=== PATIENT | female | born 1950 | race Hispanic/Latino ===

== ENCOUNTER 2017-07-13 10:08 | Inpatient (IN) | payer MEDICARE, BC ==
[~2017-07-13 10:08] MED LIST: Atropine Sulfate 1 mg/10 ml Syringe ONE; EPINEPHrine 1 MG/10 ML Abboject SYRINGE ONE
[2017-07-13 10:25] LABS: #Eosinphils 0.1 thou/uL (0.0-0.7); #Lymphocytes 0.6 thou/uL (1.20-3.40); #Monocytes 0.4 thou/uL (0.11-0.59); #Neutrophils 5.6 thou/uL (1.40-6.50); %Lymphocytes 8.5 % (21.0-51.0); %Monocytes 5.5 % (0.0-10.0); Hemoglobin 9.9 g/dL (12.0-16.0); Mean Corpuscular HGB CONC 32.5 g/dL (32.0-36.0); Mean Corpuscular Hemoglobin 29.6 pg (27.0-31.0); Mean Platelet Volume 8.4 fL (7.4-10.4); Platelet Count 224 thou/uL (130-400); Red Blood Cell (RBC) Count 3.34 mill/uL (4.20-5.40); White Blood Cell (WBC) Count 6.6 thou/uL (4.8-10.8)
[2017-07-13 10:37] LABS: INR-International Normal Ratio 1.4; Prothrombin Time 17.1 SEC (12.0-14.7)
[2017-07-13 10:38] LABS: PTT 48.7 SEC (22.9-36.1)
[2017-07-13 10:41] LABS: Digoxin Less than 0.15 ng/mL (0.8-2.0)
[2017-07-13 10:42] LABS: ALT (SGPT) 12 U/L (8-55); AST (SGOT) 19 U/L (5-34); Albumin 2.6 g/dL (3.4-4.8); Alkaline Phosphatase 106 U/L (40-150); Anion Gap 13 mmol/L (10-20); BUN (Urea Nitrogen) 76 mg/dL (9.8-20.1); Bilirubin, Total 0.6 mg/dL (0.2-1.2); CK (CPK) 64 U/L (29-168); Calc. Creatinine Clearance 0 mL/min (70-130); Calcium 8.1 mg/dL (7.8-10.44); Carbon Dioxide 20 mmol/L (23-31); Chloride 99 mmol/L (98-107); Estimated GFR-MDRD 14; Globulin 3.6 g/dL (2.4-3.5); Lipase 50 U/L (8-78); Potassium 3.4 mmol/L (3.5-5.1); Protein, Total 6.2 g/dL (6.0-8.3); Sodium 129 mmol/L (136-145)
--- NOTE | 2017-07-13 10:42 | RAD ---
CHEST ONE VIEW: History: Emergency exam. Bradycardia. Comparison: 08-13-16 FINDINGS: Patient is rotated to the right. Defibrillator pad is noted over the right chest. Heart size is moder ately enlarged. There appears to be prominence of the left basilar and pulmonary trunk. No definite aortic dissection . No pneumothorax. IMPRESSION: Stable appearance to the chest. Cardiomegaly with mild pulmonary venous congestion. Defibrillator pad is projecting over the right chest. POS: [facility]
[2017-07-13 10:45] LABS: Glucose 31 mg/dL (80-115)
[2017-07-13 10:46] LABS: CKMB 2.6 ng/mL (0-6.6); Troponin I 0.077 ng/mL (< 0.028)
[2017-07-13] MEDS ORDERED: Dextrose 50% Abboject 50 ML SYRINGE ONE (10:46)
[2017-07-13 10:59] LABS: Actual Bicarbonate (HCO3a) 20.8 mEq/L (22-26); Base Excess (BEa) -3.5 mEq/L (0 (+/-) 2.5); CO2 Tension 34.5 mmHg (35.0-45.0); Carboxyhemoglobin (COHb) 1.4 gm% (0.0-3.0); Hematocrit-ABG 33.5 % (36.0-47.0); O2 Tension (PaO2) 63.3 mmHg (80.0-100.0); Potassium - ABG Lab 3.2 mmol/L (3.70-5.30)
[2017-07-13 11:00] LABS: ALV-art Gradient 150.255 (0-20); Analyzer IN Cardio ER; Calcium, Ionized 1.1 mmol/L (1.12-1.30); Puncture Site L.B.
[2017-07-13] MEDS ORDERED: Vancomycin HCl 1.25 GM in Sodium Chloride 0.9% 250 ML 250 ML IVPB SCH (11:00)
[2017-07-13 11:04] LABS: Bilirubin Negative (Negative); Blood, Urine Negative (Negative); Glucose, Urine (Dipstick) Negative (Negative); Leukocyte Small (Negative); Nitrite Negative (Negative); Protein, Urine (Dipstick) Negative (Neg-Trace); Urobilinogen 0.2 mg/dL (0.2-1.0); pH, Urine 5.5 (5.0-9.0)
[2017-07-13 11:06] LABS: Clarity Hazy (Clear)
[2017-07-13 11:14] LABS: Bacteria/HPF 4+ HPF (None Seen); Hyaline Casts/LPF NONE SEEN LPF (0-3 Hyaline); RBC/HPF 0-3 HPF (0-3); Squamous Epithelial 0-3 HPF (0-3)
[2017-07-13] MEDS ORDERED: Piperacillin/Tazobactam 4.5 GM in Sodium Chloride 0.9% 100 ML IVPB SCH (11:15)
--- NOTE | 2017-07-13 11:16 | CT ---
NONCONTRAST CT HEAD: Date: 07-13-17 History: Altered mental status. Comparison: 11-13-14 FINDINGS: Patient was recently administered intravenous contrast which limits evaluation for subarachnoid hemor rhage. However, no intraparenchymal hemorrhage is visualized. Encephalomalacia and distribution of th e left posterior cerebral artery is again present and stable from prior exam likely related to remote area of infarction. There is a low density area again seen within the right supraventricular frontal lobe centrum semiovale likely related to dilatation of the occipital horn and atrium of the left lat eral ventricle as well as portions of the temporal horn left lateral ventricle due to an area of ence phalomalacia. There is minimal asymmetric signal volume loss on the left compared to the right which also a stable finding. No acute cortical infarction is present. Remote lacunar infarction posterior left internal capsule is again seen. No other interval change. IMPRESSION: 1. Limited exam for evaluation of subarachnoid hemorrhage, but no obvious intracranial hemorrhage is appreciated on this exam. 2. Stable area of encephalomalacia left temporo-occipital lobe. 3. Remote lacunar infarction in the posterior left internal capsule as well as small remote infractio n in the left cerebellar hemisphere. 4. No acute intracranial abnormalities demonstrated. POS: [facility]
--- NOTE | 2017-07-13 11:40 | CT ---
CTA OF THE CHEST AND ABDOMEN UTILIZING IV CONTRAST AND AORTIC DISSECTION PROTOCOL WITH 3D REFORMATTED IMAGING: COMPARISON: CT of the abdomen dated 03/20/12. FINDINGS: No acute aortic stenosis, occlusion, or aneurysmal formation is evident. There is severe vascular ca lcification involving the thoracic aorta and coronary arteries. There is postsurgical change of a pr ior CABG. The great vessel origins are patent. The common carotid and subclavian arteries appear pa tent. There are small bilateral pleural effusions, right greater than left. There are areas of scat tered subsegmental volume loss within both lungs. There is moderate cardiomegaly. There is diffuse prominent ascites. There is moderate to prominent anasarca. There is a fluid-conta ining anterior abdominal wall hernia seen within the upper midline abdominal wall image 115 of series 2. There is an additional fluid-containing paraumbilical hernia. There is high-grade stenosis involving the origins of the celiac, SMA, and both renal arteries. Ther e is also high-grade stenosis involving the origin of VERONICA. Common iliac, external iliac, and interna l iliac arteries appear patent. No definite acute osseous abnormality is evident. IMPRESSION: 1. No acute aortic stenosis, occlusion, or aneurysmal formation. 2. High-grade stenosis involving the celiac, superior mesenteric artery, renal, and inferior mesente trip artery origins. 3. Cardiomegaly with small bilateral pleural effusions may reflect sequelae of volume overload or co ngestive heart failure. There is prominent ascites and anasarca. 4. Fluid containing anterior abdominal wall and periumbilical abdominal wall hernia. 5. Scattered subsegmental volume loss within both lungs. POS: [facility]
[2017-07-13] MEDS ORDERED: Furosemide 100 MG/10 ML VIAL ONE (11:48)
[2017-07-13] MEDS ORDERED: DOBUTAMINE IN DEXTROSE 5 % 250 MG in Premix Bag 1 BAG IV SCH (12:45)
[2017-07-13] MEDS ORDERED: ISOVUE-370 76%-LOCM 1 ML ONE (12:46)
[2017-07-13] MEDS ORDERED: Calcium Carbonate 500 MG ChewTAB PO PRN (13:04)
[2017-07-13] MEDS ORDERED: Bisacodyl 10 MG SUPP PR PRN (13:04)
[2017-07-13] MEDS ORDERED: Ondansetron PF 4 MG/2 ML Vial IVP PRN (13:04)
[2017-07-13] MEDS ORDERED: Guaifenesin DM 100-10/5 ML UDCUP PO PRN (13:04)
[2017-07-13] MEDS ORDERED: Acetaminophen 325 MG TAB PO PRN (13:04)
[2017-07-13] MEDS ORDERED: Bisacodyl 5 MG TAB PO PRN (13:04)
[2017-07-13] MEDS ORDERED: Furosemide 100 MG in Sodium Chloride 0.9% 100 ML IVPB SCH (13:15)
[2017-07-13] MEDS: cefTRIAXone\\ROCEPHIN 2 GM in Sodium Chloride 0.9% 100 ML IVPB SCH (15:36)
--- NOTE | 2017-07-13 15:37 | HP ---
REASON FOR ADMISSION: Bradycardia, acute on chronic congestive heart failure exacerbation, acute kidney injury on top of chronic kidney disease, multiple organ failure, hyponatremia, metabolic acidosis likely due to renal disease, hypoalbuminemia with protein malnutrition. HISTORY OF PRESENT ILLNESS: Please note the majority of this history is obtained by talking to patient's , ER physician, prior records as patient is not fully oriented to give a comprehensive history. She is currently moaning. She apparently became very lethargic this morning. She was not responding well to her and EMS was summoned for the same and was brought here. When EMS arrived, the patient had heart rates in the 50s and was given a dose of atropine and she was placed on transcutaneous pacer and brought to emergency room. The patient's mentions that she has had bradycardia in May, specifically on 06/05/2017 and was admitted to [facility] for nearly 7 days. She was evaluated by her basketball commentator, Dr. Ricardo alfaro. Her heart rate was ranging from 39-54 then. On 07/06/2017, the patient was not urinating much. In fact, she was only urinating once a day , small amount. The called Dr. Silva's office and she was asked to take Lasix 100 mg daily along with metolazone. She was putting on fluid all around her abdomen and lower extremities. The called Dr. Lee yesterday and told that she is still not making urine and Dr. Lee advised them to give her free water. Finally, when she became very lethargic this morning, the patient was brought to emergency room. On arrival, her heart rate was peaking up to 50s and 60s at present. She was placed on dobutamine drip. The patient was hypothermic on arrival with a temperature of 94.8 and is currently placed on a Janis Hugger. PAST MEDICAL AND SURGICAL HISTORY: History of chronic kidney disease stage 3-4 , CHF with diastolic dysfunction. Had echo done in 07/2016 which showed RV pressures of 56 mmHg with severe tricuspid regurgitation then. Coronary artery disease with prior cardiac catheterization, diabetes mellitus type 2, prior history of CVA with right hemiparesis, hypothyroidism, dyslipidemia, anxiety, depression, carotid endarterectomy, hysterectomy, x1. CURRENT MEDICATIONS: The patient is on aspirin 150 mg p.o. twice daily, Levemir 12 units subq daily, vitamin D3 one gram twice daily, nitroglycerin transdermal patch daily, levothyroxine 100 mcg daily, Norvasc 5 mg p.o. q.a.m., Imdur 120 mg daily, Coreg 12.5 mg twice daily, Lasix 100 mg daily, metolazone 5 mg daily, Pravachol 80 mg p.o. daily, hydralazine 50 mg 3 times daily, sertraline 50 mg daily. ALLERGIES: No known drug allergies. PERSONAL HISTORY: Does not abuse alcohol or drugs. No history of smoking. Lives with her . FAMILY HISTORY: There is history of diabetes, hypertension, and heart disease in the family. REVIEW OF SYSTEMS: Cannot be obtained as patient is not oriented at present. PHYSICAL EXAMINATION: GENERAL: The patient is a 67-year-old female who is in moderate to severe distress with moaning and is complaining of abdominal discomfort. VITAL SIGNS: Blood pressure 126/64, pulse is ranging from 50-61 beats per minute, respiratory rate 18 per minute, temperature 94.8 rectal, saturating 93% on 4 liters nasal cannula. NECK: Supple. There is mild elevation in JVD. EYES: Extraocular muscles intact. Pupils are reacting to light. ORAL CAVITY: Mucous membranes are dry. No exudates or congestion. CARDIOVASCULAR: S1, S2 heard, S3 plus. RESPIRATORY: Air entry 1+ bilateral. Distant breath sounds. There are rales plus bilaterally. ABDOMEN: Soft. There was subcutaneous edema with massive anasarca around the abdomen and upper thigh area. Bowel sounds are heard. No rigidity or guarding. EXTREMITIES: There is 2+ peripheral edema, no calf tenderness. VASCULAR: Peripheral pulses 1+ bilateral. No ischemic ulcerations or gangrene. CENTRAL NERVOUS SYSTEM: The patient has chronic right hemiparesis with no acute focal finding seen. PSYCHIATRIC: Cannot be assessed as patient is not cognitively intact at present. LABORATORY AND X-RAY FINDINGS: White count 6.6, H&H 10 and 30, platelet count 224, MCV is 91 with 85% neutrophils. PT/INR 17 and 1.4, PTT 48. Blood gas done shows a pH of 7.40, pCO2 34, pO2 63, sodium 129, potassium 3.4. Serum bicarbonate 20, BUN 76, creatinine 3.34. Serum glucose was 31. Liver enzymes were within normal limits. CK-MB 2.6, troponin I 0.07. BNP is 3648, albumin is 2.6. CT brain done shows no acute infarct or bleed. There was old left temporal occipital encephalomalacia from prior stroke. There is also remote lacunar infarct in the posterior left internal capsule as well as small remote infarct in the left cerebellar hemisphere. CT dissection protocol done showed no aortic stenosis, occlusion, or aneurysm formation. There was high grade stenosis involving celiac, superior mesenteric artery, inferior mesenteric artery, and renal artery origins. There was cardiomegaly and small bilateral pleural effusions, prominent ascites and anasarca, fluid containing anterior abdominal wall and periumbilical abdominal wall hernias. Chest x-ray done shows cardiomegaly with pulmonary vascular congestion. EKG showed sinus bradycardia at 54 beats per minute. There are also signs of second degree type 2 AV block. CLINICAL IMPRESSION AND PLAN: The patient will be admitted to ICU in view of symptomatic bradycardia at present. She has been placed on dobutamine for massive anasarca, which is multifactorial including acute congestive heart failure exacerbation with diastolic dysfunction, acute kidney injury on top of chronic kidney disease stage 4 and hypoalbuminemia with protein malnutrition. She was given 60 mg of IV Lasix in the ER with hardly any urine output. She had a total of 120 mL of urine in the last 2 hours after Lasix. The patient was initially placed on epinephrine IV piggyback, which has been switched over to dobutamine and we will continue her at 5 mcg/kg/minute. She will also be on Lasix 5 mg an hour IV drip. We will place her on Levaquin 250 mg daily for a likely urinary tract infection. The patient has multiple organ failures and has massive anasarca with acute kidney injury. Her overall prognosis is poor and I have explained this to the patient's and son at bedside. She has out of hospital DNR and the wants her to be DNR as this is what she wanted. The also mentions that he does not want her going on hemodialysis as the patient had expressed the same to him before. The is also clearly aware with diuresis that patient might end up with end-stage renal disease. She is almost anuric at present and last-ditch effort will be done to help her anasarca which might stress the kidneys. If patient were to end up with end-stage renal disease with complete anuria, would want his to going into hospice with likely placement. We will hold off all AV kylah blockers for now including Coreg. She will be on aspirin, Colace, levothyroxine, Pravachol for now. Echo with 2D Doppler for LV function will be obtained. Cardiology consultation with Dr. Crowley, who is on for Cardiology will be obtained. Once the patient is more stable with respect to her bradycardia, the patient will be transferred to telemetry. She will be on clear liquid diet if she can tolerate after a few hours of perking up. If not, she will be kept n.p.o. The patient does very minimal with respect to ADL at home. She barely stands up and pivots for her to place the wheelchair to move around. She also has baseline cognitive defects in addition to right hemiparesis from her prior stroke and has short term memory loss as well. This information is based on my talking to patient's at bedside. We will continue to closely monitor her in ICU for bradycardia as of now. SHARIF
[2017-07-13] MEDS ORDERED: Dextrose 5% in Water 1,000 ML IV PRN (18:08)
[2017-07-13] MEDS ORDERED: Insulin Regular 300 UNITS/3 ML VIAL SC PRN (18:08)
[2017-07-13] MEDS ORDERED: Dextrose 50% Abboject 50 ML SYRINGE SLOW IVP PRN (18:08)
[2017-07-13] MEDS: Albumin 25% 25 GM/100 ML BOT IVPB SCH ×2 (18:43→22:00)
--- NOTE | 2017-07-13 20:30 | CON ---
DATE OF CONSULTATION: 07/13/2017 HISTORY OF PRESENT ILLNESS: The patient is an unfortunate 67-year-old woman with a long history of ischemic cardiomyopathy, who presented with extreme weakness and dyspnea. The patient has a long history of ischemic cardiomyopathy. She has been followed by Dr. Silva. She has been admitted several times with congestive heart failure. She was in her usual state of health. When she started making less urine and took extra doses of Lasix. The patient became confused and weak, and came to the emergency room for further evaluation. PAST MEDICAL HISTORY: 1. Coronary artery disease. 2. Cardiomyopathy. 3. Diabetes mellitus. 4. Hypertension. 5. Depression. PAST SURGICAL HISTORY: Hysterectomy, carotid endarterectomy. MEDICATIONS: See nursing list. SOCIAL HISTORY: Nonsmoker. PHYSICAL EXAMINATION: GENERAL: This is an ill-appearing woman on dobutamine with her heart rate of 65. NECK: Full. LUNGS: Crackles in both bases. HEART: Regular rate and rhythm, normal S1, S2, 2/6 systolic murmur. ABDOMEN: Distended. EXTREMITIES: Showed severe bilateral edema. LABORATORY DATA: Sodium 129, potassium 3.4, chloride 99, bicarbonate 20, BUN 76 , creatinine 3.34. Her white blood cell count is 6.6, hemoglobin 9.9, hematocrit 30.5, platelets 224. INR was 1.4. Her initial EKG revealed marked sinus bradycardia with premature ventricular contractions. Telemetry monitoring reveals normal sinus rhythm, rate of approximately 16. IMPRESSION: 1. Symptomatic bradycardia. 2. History of coronary artery bypass surgery. 3. Severe ischemic cardiomyopathy. 4. Cerebrovascular accident. 5. Diabetes mellitus. PLAN: This patient developed symptomatic bradycardia. From a cardiac standpoint, it may be advisable that this patient have placement of electronic defibrillator. The patient will continue on dobutamine. We will follow this patient with you through her hospitalization. Critical care note, 30 minutes. SHARIF
--- NOTE | 2017-07-13 20:34 | CON ---
DATE OF CONSULTATION: 07/13/2017 HISTORY OF PRESENT ILLNESS: Ms. Tipton is a 67-year-old female with known history of chronic renal failure secondary to the patient's diabetic nephropathy and admitted for bradycardia. Of interest, this patient was also admitted at [facility] back on May for bradycardia. She was also noted to be having generalized edema. We are now being consulted for her worsening renal dysfunction as well as generalized edema. In the interim, the patient's diuretics has been increased. Cardiology has had added metolazone earlier this week. However, urine output still was noted to be decreased. REVIEW OF SYSTEMS: Positive for generalized edema. No syncopal episode, no chest pain. Patient has some mild shortness of breath. No nausea, no vomiting. Decreased appetite, decreased energy level. No fever or chills. No gross hematuria. No dysuria, no urinary frequency. HOME MEDICATIONS: Furosemide 80 mg once a day, sertraline 50 mg at bedtime, amlodipine 10 mg half tablet once a day, Imdur 60 mg 2 tabs in the morning, pravastatin 80 mg tab at bedtime, carvedilol 12.5 mg 1/2 tablet twice a day, Levemir 12 units subcu at bedtime, hydralazine 25 mg tab 2 tabs t.i.d., metolazone 5 mg tab once a day. PAST MEDICAL HISTORY: Includes the following, 1. Coronary artery disease. 2. Status post CHF. 3. Chronic renal failure from diabetic nephropathy. 4. Status post cerebrovascular accident 5. Type 2 diabetes mellitus. 6. Hyperlipidemia. 7. Hypothyroidism. 8. Dyslipidemia. 9. Status post DC. 10. Depression. PAST SURGICAL HISTORY: 1. Status post hysterectomy. 2. Status post cardiac catheterization. 3. Status post carotid endarterectomy. SOCIAL HISTORY: Retired daycare worker. , lives in [place]. Two children. Education: 12th grade. No history of smoking, no alcohol, no IV drug abuse. Status post blood transfusion. ALLERGIES: None. TRAUMA: None. IMMUNIZATIONS: Up to date. HOSPITALIZATIONS: Please see past medical history. FAMILY HISTORY: Positive family history of ESRD. PHYSICAL EXAMINATION: VITAL SIGNS: Blood pressure is 158/79, heart rate is 68, respiratory rate is 20 , pulse ox 97%. GENERAL: Awake, confused, agitated. Not in overt distress. SKIN: Adequate turgor. HEENT: She has pinkish conjunctivae, anicteric sclerae. NECK: No neck mass, no carotid bruits, no JVD. CHEST: No deformities. LUNGS: Decreased breath sounds. HEART: Normal sinus rhythm. No murmur, no gallops or rubs. ABDOMEN: Globular, soft, nontender. No masses. EXTREMITIES: Trace edema. LABORATORY DATA AND X-RAY FINDINGS: Of 07/13/2017, white count 6.6, hemoglobin 9.9, hematocrit 30.5, sodium 129, potassium 3.4, chloride 99, carbon dioxide 20 , BUN 76, creatinine 3.34, glucose 31, calcium 8.1, uric acid is 13.2, AST 19, ALT 12. Troponin I 0.077. BNP is 3640. Chest x-ray, increased lung markings. ASSESSMENT AND PLAN: 1. Generalized edema/anasarca. I agree with empiric Lasix drip with this patient. To enhance the efficacy of the Lasix, I have decided to add salt poor albumin 25 grams IV q.6 hours for the next 3 days. Hopefully, the albumin can maintain intravascular volume to help ameliorate the renal dysfunction. There is no indication for any dialytic intervention at the present time with this patient. 2. Acute kidney injury on top of her chronic renal failure - most likely a superimposed hemodynamically mediated renal dysfunction, salt-poor albumin has been started. I agree with current management. Case discussed at length with the patient's family - father and son and with Dr. Molina. SHARIF
[2017-07-13] MEDS ORDERED: Pravastatin Sodium 20 MG TAB PO SCH (21:00)
[2017-07-13] MEDS: Famotidine 20 MG TAB PO SCH (22:16)
[2017-07-13] MEDS: hydrALAZINE 25 MG TAB PO SCH (22:16)
[2017-07-13] MEDS: Isosorbide Dinitrate 5 MG TAB PO SCH (22:16)
[2017-07-13] MEDS: Docusate 100 MG CAP PO SCH (22:17)
--- NOTE | 2017-07-14 02:02 | CON ---
DATE OF CONSULTATION: 07/13/2017 HISTORY OF PRESENT ILLNESS: Ms. Tipton is a 67-year-old female with cardiomyopathy. I met with her and her son. She has had a slow recent decline and has recently been oliguric. Her contract design agent suggested increase Lasix which did not help. Her direct entry midwife suggested increasing her liquid intake. She developed an altered mental status and presented to the emergency room. She subsequently has been started on dobutamine. She had a temperature of 94 in the emergency room, was placed on a warmer transferred to the ICU. Prior to transfer to the ICU, she had an aortic CT of her abdomen with contrast. PAST MEDICAL HISTORY: 1. Remarkable for chronic kidney disease. 2. End-stage cardiomyopathy with diastolic dysfunction. 3. History of coronary artery disease. 4. History of diabetes. 5. History of cerebrovascular accident. 6. History of hypothyroidism. 7. History of lipid disorder. 8. History of carotid endarterectomy. 9. History of anxiety and depression. 10. History of . 11. Status post hysterectomy. MEDICATIONS: Prior to admission, she was on aspirin, insulin, Vitamin D3, nitroglycerin, Synthroid, Norvasc, Imdur, Coreg, Lasix, metolazone, Pravachol, hydralazine, and Zoloft. SOCIAL HISTORY: She is a non-smoker, nondrinker. She does not use drugs. ALLERGIES: No drug allergies. FAMILY HISTORY: Positive for hypertension, heart disease, and diabetes. REVIEW OF SYSTEMS: Not obtainable from her since she is semi-obtunded. Her family denies 12-point review of systems other than progressive weight gain, abdominal swelling and progressive shortness of breath with a declining mental status. PHYSICAL EXAMINATION: VITAL SIGNS: Blood pressure 159/81, heart rate is in the 70s, respiratory rates in the teens, oximetry is 94. GENERAL: She will barely open her eyes. HEENT: Her extraocular movements appear intact. NECK: Supple. LUNGS: Remarkable for coarse equal breath sounds. HEART: Regular rhythm. Distant S1 and S2. ABDOMEN: Soft and distended. Her abdomen is nontender. EXTREMITIES: Very edematous. LABORATORY DATA AND X-RAY FINDINGS: Chest radiograph shows pulmonary vascular prominence and cardiomegaly. CT of her abdomen with contrast shows no aortic dissection, mesenteric vascular disease, sternotomy changes, vascular calcification of thoracic aorta and coronary arteries, bibasilar atelectasis, massive ascites, and ventral hernia. White count 6.6, hemoglobin 9.9, platelets 224. Sodium 129, potassium 3.4, chloride 99, bicarbonate 20, BUN 76, creatinine 3.34 , glucose was 31 at 10:00 this morning. BNP was 3648. IMPRESSION: 1. End-stage cardiomyopathy with anasarca. 2. DO NOT RESUSCITATION status per her son and her . The dobutamine is unlikely to help ad terminal makeup operator. It's likely, in this diabetic with severe renal dysfunction,she will develop anuric renal failure after her contrast dosing. Really few therapeutic options exist other than comfort. This has been explained to the family. CRITICAL CARE TIME: Thirty minutes. MTDD
[2017-07-14] MEDS: Albumin 25% 25 GM/100 ML BOT IVPB SCH ×3 (04:11→16:52)
[2017-07-14 04:50] LABS: #Lymphocytes 0.6 thou/uL (1.20-3.40); #Monocytes 0.4 thou/uL (0.11-0.59); #Neutrophils 6.8 thou/uL (1.40-6.50); %Basophils 0.4 % (0.0-1.0); %Eosinophils 0.5 % (0.0-10.0); %Lymphocytes 7.1 % (21.0-51.0); %Monocytes 4.6 % (0.0-10.0); %Neutrophils 87.3 % (42.0-75.0); Hemoglobin 10.3 g/dL (12.0-16.0); Mean Corpuscular HGB CONC 31.6 g/dL (32.0-36.0); Mean Corpuscular Hemoglobin 29.3 pg (27.0-31.0); Mean Corpuscular Volume 92.7 fl (81.0-99.0); Mean Platelet Volume 8.6 fL (7.4-10.4); Platelet Count 239 thou/uL (130-400); Red Blood Cell (RBC) Count 3.52 mill/uL (4.20-5.40); White Blood Cell (WBC) Count 7.8 thou/uL (4.8-10.8)
[2017-07-14 04:59] LABS: Albumin 3.5 g/dL (3.4-4.8); Anion Gap 17 mmol/L (10-20); BUN (Urea Nitrogen) 68 mg/dL (9.8-20.1); BUN/Creatinine Ratio 21.45; Calc. Creatinine Clearance 0 mL/min (70-130); Calcium 8.5 mg/dL (7.8-10.44); Carbon Dioxide 17 mmol/L (23-31); Chloride 100 mmol/L (98-107); Estimated GFR-MDRD 15; Glucose 82 mg/dL (80-115); Phosphorus 4.8 mg/dL (2.3-4.7); Potassium 3.4 mmol/L (3.5-5.1); Sodium 131 mmol/L (136-145)
[2017-07-14] MEDS: Levothyroxine Sodium 75 MCG TAB PO SCH ×2 (05:53→07:25)
[2017-07-14] MEDS ORDERED: Enoxaparin Sodium 30 MG/0.3 ML SYRINGE SC SCH (09:00)
--- NOTE | 2017-07-14 09:29 | PRG ---
DATE OF SERVICE: 07/14/2017 SUBJECTIVE: Ms. Tipton is a 67-year-old white female who was admitted due to generalized e david and generalized weakness. She has a history of ischemic cardiomyopathy. We were consulted for acute kidney injury over chronic renal failure. She has been started on IV Lasix drip as well as on IV dobutamine. We also started this patient on salt poor albumin yesterday to enhance urine output a s well as to maintain intravascular volume. This morning, she is feeling a little better. Her short ness of breath is much improved. PHYSICAL EXAMINATION: VITAL SIGNS: Blood pressure is 133/68, heart rate 58, respiratory rate 21, O2 sat 96%. GENERAL: Noted to be awake, comfortable, not in overt distress. SKIN: Adequate turgor. HEENT: Slightly pale conjunctivae, anicteric sclerae. NECK: No neck mass, no carotid bruits, no JVD. CHEST: No deformities. LUNGS: Decreased breath sounds. HEART: Normal sinus rhythm. Grade 2/6 systolic murmur, no gallops or rubs. ABDOMEN: Globular, soft, nontender. EXTREMITIES: Positive for edema. MEDICATIONS: Medications of 07/14/2017 was reviewed. LABORATORY DATA: Laboratories of 07/14/2017; sodium 131, potassium 3.4, chloride 100, carbon dioxide 17, BUN 60, creatinine 3.17, glucose 82, calcium 8.5, phosphorus 4.8. White count 7.8, hemoglobin 1 0.3. ASSESSMENT AND PLAN: 1. Generalized edema - currently on Lasix drip and salt poor albumin. Continue current management. Please note patient is diuresing. Renal function is holding steady. 2. Cardiomyopathy - patient has been started IV dobutamine to enhance cardiac output and to increase renal perfusion. Cardiology is following. 3. Type 2 diabetes mellitus - continue current management. The hospital is following her up regardi ng this. 4. Mild hyperkalemia. We will simply observe this. Overall, prognosis remains guarded. There is no indication for any dialytic intervention with this p atient.
[2017-07-14] MEDS: hydrALAZINE 25 MG TAB PO SCH ×3 (09:45→16:52)
[2017-07-14] MEDS: Isosorbide Dinitrate 5 MG TAB PO SCH ×2 (09:55→16:52)
[2017-07-14] MEDS: Docusate 100 MG CAP PO SCH ×2 (10:00→10:44)
--- NOTE | 2017-07-14 10:21 | PDOC.CTH ---
Cardiology Progress Note - Subjective The pt seen and examined. No overnight events. No cardiac complaints. - Objective Vital Signs Temp 07/14/17 08:00 96 F L 07/14/17 04:00 94 F L 07/14/17 00:00 94 F L Weight 178 lb 9.191 oz 07/13/17 07/14/17 07/15/17 06:59 06:59 06:59 Intake Total 448 Output Total 1350 90 Balance -902 -90 - Physical Examination General/Neuro: other: (self and place) Neck: no JVD present Lungs: other: (diminished at bases) Heart: RRR Abdomen: soft Extremities: other: (1-2 + pitting BLE edemas) - Telemetry Telemetry Rhythm: SB 56 w/ PVCs and PACs - Labs Result Diagrams: 07/14/17 04:34 07/14/17 04:34 Troponin/CKMB CK-MB (CK-2) 2.6 ng/mL (0-6.6) 07/13/17 10:18 Troponin I 0.077 ng/mL (< 0.028) H 07/13/17 10:18 - Assessment/Plan 1. Acute on Chronic combined HF - Stable with Lasix IV drip 5mg/h and salt poor Albumin; Dobutamine was off due to BP was up to 150s. Cont. monitor 2. Ischemic CMY - Today's Echo result is pending at this moment 3. JAK on CKD - Stable; managed by fixed income director 4. 3V CAD with hx of CABG in 2002 - stable; on ASA and Statin; may start BBlocker when her VS is stable; No ARABELLA due to Hx of CKD; cont. monitor 5. HTN - Stable; 6. Hx of CVA x2 - on Lovenox and ASA 7. Hx of Lt CEA in 2013 - Stable 8. DM type 2 - managed by PCP MAR reviewed Review of Systems - Review of Systems Constitutional: reports: weakness EENTM: reports: no symptoms reported Respiratory: reports: no symptoms reported Cardiac (ROS): reports: no symptoms reported ABD/GI: reports: no symptoms reported : reports: no symptoms reported
--- NOTE | 2017-07-14 11:28 | PQF ---
DATE: 07-14-17 ATTN: DR. MARC YOUNG Please exercise your independent, professional judgment in responding to the clarification form. Clinical indicators are provided on the bottom of this form for your review Please check appropriate box(s): [ x] Encephalopathy: Type: [ x ] Acute [ ] Subacute [ ] Chronic Etiology: [ ] Hypertensive [ ] Metabolic [ ] Toxic [ ] Other diagnosis [ ] Unable to determine In addition, please specify: Present on Admission (POA): [ ] Yes [ ] No [ ] Unable to determine For continuity of documentation, please document condition throughout progress notes and discharge summary. Thank You. CLINICAL INDICATORS - SIGNS / SYMPTOMS / LABS H&P: PATIENT IS NOT FULLY ORIENTED TO GIVE A COMPREHENSIVE HISTORY. SHE APPARENTLY BECAME VERY LETHARGIC THIS MORNING SHE WAS NOT RESPONDING WELL TO HER AND EMS WAS SUMMONED, THE PATIENT DOES VERY MINIMAL WITH RESPECT TO ADL AT HOME. SHE BARELY STANDS UP AND PIVOTS FOR HER TO PLACE THE WHEELCHAIR TO MOVE AROUND CONSULT NOTE DR. DANIELS 07-13-17: THE PATIENT BECAME CONFUSED AND WEAK AND CAME TO ER FOR FURTHER EVAL. CONSULT NOTE DR. MARTINEZ 07-13-17: AWAKE, CONFUSED, AGITATED CONSULT NOTE DR. FUENTES 07-13-17: SHE IS SEMI-OBTUNDED , DECLINING MENTAL STATUS RISK FACTORS: H&P: BRADYCARDIA, JAK WITH CKD 4, PT HAS MULTIPLE ORGAN FAILURES AND HAS MASSIVE ANASARCA WITH JAK TREATMENTS: CONSULT DR. MARTINEZ ([facility]) ROCEPHIN, ZOSYN, VANCOMYCIN, IVF (This form is maintained as a part of the permanent medical record) 2014 [employer]. All Rights Reserved ABISAI [email or web address] Office: [phone] [facility]OSPITAL[facility]ina
--- NOTE | 2017-07-14 12:34 | PQF ---
Date: 07-14-17 ATTN: DR. MARC YOUNG Please exercise your independent, professional judgment in responding to the clarification form. 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 CONSULT NOTE DR. 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 TREATMENT: INJECTION PRESS OPERATOR CONSULT ORDERED Moderate Malnutrition (in acute illness) Energy Intake: <75% of estimated energy requirement for > 7 days Weight Loss: 1-2%/1 week; 5%/ 1 month; 7.5%/3 months Other: mild body fat loss; mild muscle mass loss; mild fluid accumulation; Severe Malnutrition (in acute illness) Energy Intake: < 50% of estimated energy requirement for > 5 days Weight Loss: >1-2%/1 week; >5%/1 month; >7.5%/3 months Other: moderate body fat loss; moderate muscle mass loss; moderate- severe fluid accumulation; measurably reduced nuclear radiation engineer strength Moderate Malnutrition (in chronic illness) Energy Intake: <75% of estimated energy requirement for >1 month Weight Loss: 5%/1 month; 7.5%/3 months; 10%/6 months; 20%/1 year Other: mild body fat loss; mild muscle mass loss; mild fluid accumulation Severe Malnutrition (in chronic illness) Energy Intake: <75% of estimated energy requirement for >1 month Weight Loss: >5%/1 month; >7.5%/3 months; >10%/6 months; >20%/1 year Other: severe body fat loss; severe muscle mass loss; severe fluid accumulation ; measurably reduced nuclear radiation engineer strength (This form is maintained as a part of the permanent medical record) 2014 [employer]. All Rights Reserved [email or web address] [email or web address] Office: [phone] [facility] CENTERDorina
--- NOTE | 2017-07-14 12:38 | PDOC.PN ---
- Subjective Encounter Start Date: 07/14/17 Encounter Start Time: 10:10 Subjective: is more awake, not fully oriented -: c/o leg/foot pain, unable to localize exactly -: no sob - Objective Resuscitation Status: Resuscitation Status DNR:Do Not Resuscitate MAR Reviewed: Yes Vital Signs & Weight: Vital Signs (12 hours) Temp Pulse Pulse Pulse Resp BP BP 07/14/17 11:38 61 64 142/68 H 131/71 07/14/17 10:00 64 07/14/17 08:00 96 F L 64 21 H 07/14/17 04:00 94 F L Pulse Ox Pulse Ox Pulse Ox 07/14/17 11:38 95 92 L 07/14/17 10:00 07/14/17 08:00 90 L 07/14/17 04:00 Weight Weight 178 lb 9.191 oz Most Recent Monitor Data Heart Rate from ECG 66 NIBP 135/76 NIBP BP-Mean 103 Respiration from ECG 19 SpO2 90 I&O: 07/13/17 07/14/17 07/15/17 06:59 06:59 06:59 Intake Total 448 100 Output Total 1350 240 Balance -902 -140 Result Diagrams: 07/14/17 04:34 07/14/17 04:34 Additional Labs: Accuchecks 07/14/17 07/14/17 07/14/17 09:10 04:15 00:54 POC Glucose 78 82 87 07/13/17 07/13/17 07/13/17 21:45 20:27 19:40 POC Glucose 116 H 64 L 62 L Phys Exam - Physical Examination HEENT: PERRLA, sclera anicteric Neck: no JVD, supple Respiratory: no wheezing rales+ Cardiovascular: RRR, no significant murmur Gastrointestinal: soft, non-tender, positive bowel sounds abd wall edema, ascites, ventral hernias x2 Musculoskeletal: pulses present, edema present right hemiparesis, dysarthria Dx/Plan (1) Acute renal failure Status: Acute (2) Anasarca Code(s): R60.1 - GENERALIZED EDEMA Status: Acute (3) Acute exacerbation of CHF (congestive heart failure) Code(s): I50.9 - HEART FAILURE, UNSPECIFIED Status: Acute Qualifiers: Qualified Code(s): I50.23 - Acute on chronic systolic (congestive) heart failure (4) Anemia, normocytic normochromic Code(s): D64.9 - ANEMIA, UNSPECIFIED Status: Chronic (5) CAD (coronary artery disease) Code(s): I25.10 - ATHSCL HEART DISEASE OF [place] CORONARY ARTERY W/O ANG PCTRS Status: Chronic Qualifiers: Coronary Disease-Associated Artery/Lesion type: bypass graft [place] vs. transplanted heart: [place] heart Associated angina: without angina Qualified Code(s): I25.810 - Atherosclerosis of coronary artery bypass graft(s) without angina pectoris (6) CKD (chronic kidney disease), stage IV Code(s): N18.4 - CHRONIC KIDNEY DISEASE, STAGE 4 (SEVERE) Status: Chronic (7) Diabetes mellitus type 2, controlled, with complications Code(s): E11.8 - TYPE 2 DIABETES MELLITUS WITH UNSPECIFIED COMPLICATIONS Status: Chronic Comment: labile (8) Dyslipidemia Code(s): E78.5 - HYPERLIPIDEMIA, UNSPECIFIED Status: Chronic (9) Hypertension Code(s): I10 - ESSENTIAL (PRIMARY) HYPERTENSION Status: Chronic Qualifiers: Hypertension type: essential hypertension Qualified Code(s): I10 - Essential (primary) hypertension (10) Hypothyroidism Code(s): E03.9 - HYPOTHYROIDISM, UNSPECIFIED Status: Chronic (11) Obesity (BMI 30-39.9) Code(s): E66.9 - OBESITY, UNSPECIFIED Status: Chronic (12) Physical deconditioning Code(s): R53.81 - OTHER MALAISE Status: Chronic (13) Acute metabolic encephalopathy Code(s): G93.41 - METABOLIC ENCEPHALOPATHY Status: Acute - Plan has multiple organ failures -: on lasix drip at 5mg/hr, hemostable for now, bradycardia resolved -: poor oral intake -: tx to telemetry, prognosis guarded -: on ceftriaxone, still has large amount of fluid around her abd+ascites * . Review of Systems - Medications/Allergies Allergies/Adverse Reactions: Allergies Allergy/AdvReac Type Severity Reaction Status Date / Time No Known Drug Allergies Allergy Verified 07/13/17 15:47 Medications: Current Medications Acetaminophen (Tylenol) 650 mg PO Q4H PRN PRN Reason: Headache/Fever or Pain Last Admin: 07/13/17 19:59 Dose: 650 mg Albumin Human (Albumin 25%) 25 gm IVPB 0400,1000,1600,2200 [place] Stop: 07/16/17 10:01 Last Admin: 07/14/17 10:36 Dose: 25 gm Aspirin (Aspirin Chewable) 81 mg PO DAILY [facility] Last Admin: 07/14/17 10:00 Dose: Not Given Bisacodyl (Dulcolax) 10 mg PO DAILYPRN PRN PRN Reason: Constipation Bisacodyl (Dulcolax) 10 mg GA Q24H PRN PRN Reason: Constipation Calcium Carbonate (Tums) 1,000 mg PO Q4H PRN PRN Reason: Heartburn or Indigestion Dextrose/Water (Dextrose 50%) 25 gm SLOW IVP PRN PRN PRN Reason: Hypoglycemia Last Admin: 07/13/17 20:28 Dose: 25 gm Docusate Sodium (Colace) 100 mg PO BID [facility] Last Admin: 07/14/17 10:44 Dose: Not Given Enoxaparin Sodium (Lovenox) 30 mg SC 0900 [facility] Last Admin: 07/14/17 09:45 Dose: 30 mg Famotidine (Pepcid) 20 mg PO 2100 [facility] Last Admin: 07/13/17 22:16 Dose: Not Given Glucagon (Glucagon) 1 mg IM PRN PRN PRN Reason: Hypoglycemia Guaifenesin/Dextromethorphan (Robitussin Dm) 15 ml PO Q4H PRN PRN Reason: Cough Hydralazine HCl (Apresoline) 25 mg PO TID [facility] Last Admin: 07/14/17 10:00 Dose: Not Given Furosemide 100 mg/ Sodium (Chloride) 110 mls @ 5.5 mls/hr IVPB INF [facility] PRN Reason: 5 MG/HR Last Admin: 07/13/17 20:06 Dose: 110 mls Ceftriaxone Sodium 2 gm/ (Sodium Chloride) 100 mls @ 200 mls/hr IVPB 1500 [facility] Last Admin: 07/13/17 15:36 Dose: 100 mls Dextrose/Water (D5w) 1,000 mls @ 0 mls/hr IV .Q0M PRN; As Directed PRN Reason: Hypoglycemia Insulin Human Regular (Humulin R) 0 units SC .MILD SLIDING SCALE PRN PRN Reason: Mild Correctional Scale Isosorbide Dinitrate (Isordil) 10 mg PO TID [facility] Last Admin: 07/14/17 09:55 Dose: Not Given Levothyroxine Sodium (Synthroid) 75 mcg PO 0600 [facility] Last Admin: 07/14/17 07:25 Dose: 75 mcg Ondansetron HCl (Zofran) 4 mg IVP Q6H PRN PRN Reason: Nausea/Vomiting Pravastatin Sodium (Pravachol) 80 mg PO HS [facility] Last Admin: 07/13/17 22:15 Dose: Not Given
[2017-07-14] MEDS ORDERED: Furosemide 100 MG in Sodium Chloride 0.9% 90 ML IVPB SCH (14:30)
[2017-07-14] MEDS: cefTRIAXone\\ROCEPHIN 2 GM in Sodium Chloride 0.9% 100 ML IVPB SCH (16:51)
[2017-07-14] MEDS: Famotidine 20 MG TAB PO SCH (20:10)
--- NOTE | 2017-07-14 20:18 | PRG ---
DATE OF SERVICE: 07/14/2017 SUBJECTIVE: Flaca Tipton is a little more alert. OBJECTIVE: VITAL SIGNS: Blood pressure 142/68, heart rate in the 60s, respiratory rate is in the 20s. LUNGS: Clear anteriorly. HEART: Regular rhythm. ABDOMEN: Still tense with ascites. LABORATORY DATA: White count 7.8, hemoglobin 10.3, platelets 239. Sodium 131, potassium 3.4, chloride 100, bicarbonate 17, BUN 68, creatinine 3.17. IMPRESSION: 1. End-stage cardiomyopathy. 2. Anasarca secondary to her cardiomyopathy, presumably she usually gets her care at [facility], so I do not have access to those records. 3. Chronic kidney disease. Hopefully, the contrast administered in the emergency department would l ead to renal failure, but given that she has diabetes, it is highly likely that there will be some do wnstream effects from this. 4. Diabetes. 5. Elevated phosphorus is part of her renal insufficiency. She, at this time, will be scheduled to move out of Critical Care Unit, as there are no critical care needs at this point in time.
[2017-07-15] MEDS ORDERED: Furosemide 100 MG/10 ML VIAL SLOW IVP SCH ×2 (09:30→14:00)
[2017-07-15 09:35] LABS: Anion Gap 23 mmol/L (10-20); BUN (Urea Nitrogen) 73 mg/dL (9.8-20.1); Calc. Creatinine Clearance 20 mL/min (70-130); Calcium 8.8 mg/dL (7.8-10.44); Carbon Dioxide 13 mmol/L (23-31); Chloride 101 mmol/L (98-107); Estimated GFR-MDRD 13; Potassium 3.7 mmol/L (3.5-5.1); Sodium 133 mmol/L (136-145)
[2017-07-15 09:39] LABS: Glucose 58 mg/dL (80-115)
--- NOTE | 2017-07-15 09:40 | PRG ---
DATE OF SERVICE: 07/15/2017 SUBJECTIVE: Ms. Tipton is a 67-year-old female with known multiple medical problems and th is includes her chronic renal failure, diabetes mellitus and underlying cardiac problem. She has bee n moved out of the ICU to telemetry. The family wishes that we continue medical care with her. 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 I had a long discussion with the family. We will relay this message to the Hospitalist. At the present time due to the congestive heart failure I have decided to start her back on Lasix 80 mg IV q.12. We will co ntinue to monitor her renal function. This patient is most likely not a dialysis candidate. The patient is a bit short of breath this morning. PHYSICAL EXAMINATION: VITAL SIGNS: Blood pressure is 105/66, heart rate 52, respiratory rate 18, temperature 97.4, pulse o x is 91% on 15% nonrebreather. GENERAL: Noted to be awake, supine, comfortable, not in overt distress. SKIN: Adequate turgor. HEENT: Slightly pale conjunctivae, anicteric sclerae. NECK: No neck mass, no carotid bruits, no JVD. CHEST: No deformities. LUNGS: Decreased breath sounds. HEART: Normal sinus rhythm. No murmur, no gallops, no rubs. ABDOMEN: Globular, soft, nontender, no masses. EXTREMITIES: No edema, no deformities. MEDICATIONS: 07/15/2017 - Reviewed. LABORATORY: 07/15/2017 - Pending. ASSESSMENT AND PLAN: 1. Chronic renal failure, last creatinine was 3.1. We will recheck another base met today. I would continue the Lasix at 80 mg IV q.12h. 2. Cardiomyopathy/congestive heart failure - Lasix 80 mg IV q.12. She is currently on nonrebreather . If she does not improve, then it may be most appropriate to reconsider having the family speak [facility] again. At the present time, they are not ready to place this patient to hospice and would like us to do active treatment. I had a long discussion with the family. Continue current management.
[2017-07-15] MEDS ORDERED: cefTRIAXone\\ROCEPHIN 1 GM in Sodium Chloride 0.9% 100 ML IVPB SCH (11:30)
[2017-07-15] MEDS ORDERED: cefTRIAXone\\ROCEPHIN 1 GM, Syringe 0.4 ML in Sterile Water 9.6 ML SLOW IVP SCH (12:00)
--- NOTE | 2017-07-15 13:49 | PDOC.PN ---
- Subjective Encounter Start Date: 07/15/17 Encounter Start Time: 09:40 Subjective: awakens easily, not fully oriented -: is on non re-breather with spo2 of 84-87% -: family at bedside - Objective Resuscitation Status: Resuscitation Status DNR:Do Not Resuscitate MAR Reviewed: Yes Vital Signs & Weight: Vital Signs (12 hours) Temp Pulse Resp BP Pulse Ox 07/15/17 08:00 97.6 F 76 14 122/56 L 90 L 07/15/17 04:00 97.4 F L 52 L 18 105/66 91 L Weight Weight 183 lb Most Recent Monitor Data Heart Rate from ECG 64 NIBP 134/78 NIBP BP-Mean 90 Respiration from ECG 22 SpO2 85 I&O: 07/14/17 07/15/17 07/16/17 06:59 06:59 06:59 Intake Total 448 100 Output Total 1350 470 Balance -902 -370 Result Diagrams: 07/14/17 04:34 07/15/17 08:59 Additional Labs: Accuchecks 07/15/17 07/14/17 07/14/17 11:34 16:19 13:56 POC Glucose 64 L 78 69 L Phys Exam - Physical Examination HEENT: PERRLA, sclera anicteric Neck: no JVD, supple Respiratory: no wheezing rales++ Cardiovascular: RRR, no significant murmur Gastrointestinal: soft, positive bowel sounds ascites+++, abd wall edema Musculoskeletal: pulses present, edema present Neurological: non-focal chronic right hemiparesis Dx/Plan (1) Acute respiratory failure with hypoxia Code(s): J96.01 - ACUTE RESPIRATORY FAILURE WITH HYPOXIA Status: Acute (2) Acute renal failure Status: Acute (3) Anasarca Code(s): R60.1 - GENERALIZED EDEMA Status: Acute (4) Acute exacerbation of CHF (congestive heart failure) Code(s): I50.9 - HEART FAILURE, UNSPECIFIED Status: Acute Qualifiers: Qualified Code(s): I50.23 - Acute on chronic systolic (congestive) heart failure (5) Anemia, normocytic normochromic Code(s): D64.9 - ANEMIA, UNSPECIFIED Status: Chronic (6) CAD (coronary artery disease) Code(s): I25.10 - ATHSCL HEART DISEASE OF [place] CORONARY ARTERY W/O ANG PCTRS Status: Chronic Qualifiers: Coronary Disease-Associated Artery/Lesion type: bypass graft [place] vs. transplanted heart: [place] heart Associated angina: without angina Qualified Code(s): I25.810 - Atherosclerosis of coronary artery bypass graft(s) without angina pectoris (7) CKD (chronic kidney disease), stage IV Code(s): N18.4 - CHRONIC KIDNEY DISEASE, STAGE 4 (SEVERE) Status: Chronic (8) Diabetes mellitus type 2, controlled, with complications Code(s): E11.8 - TYPE 2 DIABETES MELLITUS WITH UNSPECIFIED COMPLICATIONS Status: Chronic Comment: labile (9) Dyslipidemia Code(s): E78.5 - HYPERLIPIDEMIA, UNSPECIFIED Status: Chronic (10) Hypertension Code(s): I10 - ESSENTIAL (PRIMARY) HYPERTENSION Status: Chronic Qualifiers: Hypertension type: essential hypertension Qualified Code(s): I10 - Essential (primary) hypertension (11) Hypothyroidism Code(s): E03.9 - HYPOTHYROIDISM, UNSPECIFIED Status: Chronic (12) Obesity (BMI 30-39.9) Code(s): E66.9 - OBESITY, UNSPECIFIED Status: Chronic (13) Physical deconditioning Code(s): R53.81 - OTHER MALAISE Status: Chronic (14) Acute metabolic encephalopathy Code(s): G93.41 - METABOLIC ENCEPHALOPATHY Status: Acute - Plan has multiple organ failures, family have changed their mind this morning an -: -d want active treatment to continue with DNR status -: she is back on lasix iv q12h, ceftriaxone for uti -: start d5w for persistent hypoglycemia for poor oral intake -: prognosis is poor, family is aware * . Review of Systems - Medications/Allergies Allergies/Adverse Reactions: Allergies Allergy/AdvReac Type Severity Reaction Status Date / Time No Known Drug Allergies Allergy Verified 07/13/17 15:47 Medications: Current Medications Acetaminophen (Tylenol) 650 mg PO Q4H PRN PRN Reason: Headache/Fever or Pain Last Admin: 07/13/17 19:59 Dose: 650 mg Aspirin (Aspirin Chewable) 81 mg PO DAILY [place] Bisacodyl (Dulcolax) 10 mg PO DAILYPRN PRN PRN Reason: Constipation Bisacodyl (Dulcolax) 10 mg DE Q24H PRN PRN Reason: Constipation Calcium Carbonate (Tums) 1,000 mg PO Q4H PRN PRN Reason: Heartburn or Indigestion Dextrose/Water (Dextrose 50%) 25 gm SLOW IVP PRN PRN PRN Reason: Hypoglycemia Last Admin: 07/13/17 20:28 Dose: 25 gm Docusate Sodium (Colace) 100 mg PO BID [place] Enoxaparin Sodium (Lovenox) 30 mg SC 2100 [place] Famotidine (Pepcid) 20 mg PO 2100 [place] Last Admin: 07/14/17 20:10 Dose: Not Given Furosemide (Lasix) 80 mg SLOW IVP 0600,1400 [place] Guaifenesin/Dextromethorphan (Robitussin Dm) 15 ml PO Q4H PRN PRN Reason: Cough Ceftriaxone Sodium 1 gm/ (Syringe 0.4 ml/ Sterile Water) 10 mls @ 120 mls/hr SLOW IVP 1200 [place] Last Admin: 07/15/17 12:14 Dose: 10 mls Dextrose/Water (D5w) 1,000 mls @ 50 mls/hr IV .Q20H [place] Isosorbide Dinitrate (Isordil) 10 mg PO BID [place] Levothyroxine Sodium (Synthroid) 75 mcg PO 0600 [place] Morphine Sulfate (Morphine) 2 mg SLOW IVP Q1H PRN PRN Reason: Chest Pain/BP Elevations Last Admin: 07/14/17 22:03 Dose: 2 mg Ondansetron HCl (Zofran) 4 mg IVP Q6H PRN PRN Reason: Nausea/Vomiting Sodium Chloride (Flush - Normal Saline) 10 ml IVF Q12HR [place] Last Admin: 07/14/17 22:04 Dose: 10 ml Sodium Chloride (Flush - Normal Saline) 10 ml IVF PRN PRN PRN Reason: Saline Flush Last Admin: 07/15/17 09:45 Dose: 10 ml
[2017-07-15] MEDS ORDERED: Dextrose 5% in Water 1,000 ML IV SCH (14:00)
[2017-07-15 18:30] VITALS: BP 139/65; TEMP 97.3
[2017-07-15] MEDS ORDERED: Enoxaparin Sodium 30 MG/0.3 ML SYRINGE SC SCH (21:00)
[2017-07-15] MEDS ORDERED: Docusate 100 MG CAP PO SCH (21:00)
[2017-07-15] MEDS ORDERED: Isosorbide Dinitrate 5 MG TAB PO SCH (21:00)
[2017-07-16] MEDS ORDERED: Levothyroxine Sodium 75 MCG TAB PO SCH (06:00)
--- NOTE | 2017-07-17 13:37 | EKG ---
Test Reason : Blood Pressure : / mmHG Vent. Rate : 057 BPM Atrial Rate : 057 BPM P-R Int : 188 ms QRS Dur : 110 ms QT Int : 514 ms P-R-T Axes : 082 -17 185 degrees QTc Int : 500 ms 2nd degree Type II AV block with occasional Premature ventricular complexes Septal infarct , age undetermined Abnormal ECG Confirmed by MAVIS MARIA M.D. ([id number]), publication editor MAVIS MATTHEWS ([id number]) on 07/17/2017 1:37:04 PM Referred By: Confirmed By:MAVIS MARIA M.D.
--- NOTE | 2017-07-19 09:47 | DIS ---
DATE OF ADMISSION: 07/13/2017 DATE OF DISCHARGE: 07/15/2017 DISCHARGE DISPOSITION: To Inpatient Hospice. PRIMARY DISCHARGE DIAGNOSES: Multiple organ failure, acute respiratory failure with hypoxia, acute r enal failure, anasarca, acute congestive heart failure exacerbation with systolic dysfunction, severe physical deconditioning, and acute metabolic encephalopathy. SECONDARY DISCHARGE DIAGNOSES: Chronic anemia, coronary artery disease, chronic kidney disease stage 4, diabetes mellitus type 2, hypertension, dyslipidemia, and hypothyroidism. PROCEDURES DONE DURING HOSPITALIZATION: Echo with 2D Doppler done showed EF of 20%-25%, moderate marilin stolic dysfunction, severe mitral regurgitation, severe tricuspid regurgitation, moderate to severely elevated pulmonary artery pressure. Pulmonary artery systolic pressure measuring approximately [address] dissection protocol done showed no aortic stenosis, occlusion, or aneurysm. There was high grade stenosis involving the celiac, superior mesenteric, renal and inferior mesenteric artery origin s with cardiomegaly with bilateral pleural effusions, prominent ascites and anasarca. Urine culture grew E. coli sensitive to all antibiotics. Blood cultures x2 no growth. BUN and creatinine were 73 and 3.5 with serum bicarbonate of 13. Serum glucose was 58 on the day of discharge. BNP 3648, album in was 2.6. DISCHARGE MEDICATIONS: Please note patient will be going to inpatient hospice for comfort care. She will be on morphine and Tylenol p.r.n. along with oxygen. ALLERGIES: No known drug allergies. BRIEF COURSE DURING HOSPITALIZATION: Patient initially got admitted on for acute on chronic con gestive heart failure exacerbation, acute respiratory failure, acute kidney injury on top of chronic kidney disease and bradycardia. Patient also had severe ascites with anasarca. She had multiple org an failures on admission. Patient was initially placed in ICU in view of symptomatic bradycardia and was placed on dobutamine drip. Her bradycardia resolved, but patient continued to have multiple org an failures. Her renal function was worsening with gentle diuresis. Patient's and children were given complete updates all through her hospitalization. They knew her prognosis was poor. They did not want her to be resuscitated initially. As patient progressively declined, patient and famil y did not want her to suffer and wanted her to go into hospice. This has been arranged via [facility] and patient will be shortly discharged. Please see a [facility]
== END 2017-07-15 20:38 | disposition hospice, inpatient (51) | DRG 291 ==
LOC: ERS 10:08 → CCU 12:23 → 2NO 07-14 15:31
PROVIDERS: ADMIT Internal Medicine; ATTEND Internal Medicine
DX: I13.0 Hypertensive heart and chronic kidney disease with heart failure and stage 1 through stage 4 chronic kidney disease, or unspecified chronic kidney disease (principal); I50.43 Acute on chronic combined systolic (congestive) and diastolic (congestive) heart failure; E43 Unspecified severe protein-calorie malnutrition; G93.41 Metabolic encephalopathy; N17.9 Acute kidney failure, unspecified; R13.10 Dysphagia, unspecified; E87.2 Acidosis; E87.1 Hypo-osmolality and hyponatremia; N18.4 Chronic kidney disease, stage 4 (severe); I69.351 Hemiplegia and hemiparesis following cerebral infarction affecting right dominant side; N39.0 Urinary tract infection, site not specified; E11.22 Type 2 diabetes mellitus with diabetic chronic kidney disease; Z68.32 Body mass index [BMI] 32.0-32.9, adult; I25.10 Atherosclerotic heart disease of native coronary artery without angina pectoris; E11.649 Type 2 diabetes mellitus with hypoglycemia without coma; E03.9 Hypothyroidism, unspecified; E78.5 Hyperlipidemia, unspecified; F41.9 Anxiety disorder, unspecified; F32.9 Major depressive disorder, single episode, unspecified; Z79.82 Long term (current) use of aspirin; E66.9 Obesity, unspecified; Z99.3 Dependence on wheelchair; Z66 Do not resuscitate; I25.5 Ischemic cardiomyopathy; E87.5 Hyperkalemia; Z95.1 Presence of aortocoronary bypass graft; D63.1 Anemia in chronic kidney disease; Z79.84 Long term (current) use of oral hypoglycemic drugs
CPT/HCPCS: 36415; 36416; 51702; 70450; 71045; 71275; 80048; 80053; 80069; 80162; 81003; 81015; 82550; 82553; 82805; 83605; 83690; 83880; 84484; 84550; 85025; 85610; 85730; 86850; 86900; 86901; 87040; 87077; 87086; 87186; 93005; 93306; 93798; 94760; 96361; 96365; 96367; 96368; 96375; A4216; G8996-GN-CK; J0171; J0461; J0696; J1250; J1650; J1940; J2270; J2543; J3370; J7050; P9047